=== PATIENT | male | born 1985 | race Caucasian/White ===

== ENCOUNTER 2018-01-15 05:19 | Emergency (ER) | payer SELFPAY ==
[2018-01-15] MEDS ORDERED: LIDOCAINE 1% (MDV) 10 ML INJ INJ (06:27)
[2018-01-15] MEDS: LIDOCAINE 1% (MDV) 20 ML INJ SC (06:35)
== END 2018-01-15 07:06 | disposition home or self-care (01) ==
LOC: FTE 05:19
DX: S01.511A Laceration without foreign body of lip, initial encounter (principal); F17.210 Nicotine dependence, cigarettes, uncomplicated; X58.XXXA Exposure to other specified factors, initial encounter; Y92.9 Unspecified place or not applicable
CPT/HCPCS: 12011; 99283-25